=== PATIENT | female | born 1940 | race Caucasian/White ===

== ENCOUNTER 2018-05-08 08:11 | Emergency (ER) | payer OTHER ==
[~2018-05-08] VITALS: Ht 157.5 cm; Wt 63.0 kg
[~2018-05-08 08:11] MED LIST: CHOL1000 PO; LEVO112T4 PO; TPRSR/50 PO
--- NOTE | 2018-05-08 08:23 | EMERGENCY ROOM VISIT NOTE ---
History Report prepared by yUen: Loraine Fuller Under the Supervision of: Dr. Thaddeus Marti M.D. 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 As per nursing staff/EMS, the patient states she went outside last night to go home however when she got out there, she realized she was already home. When she went to go back inside, she tripped over her walker and fell. Her neighbors became concerned after seeing her outside so they called EMS. Nursing staff also notes the patient has a history of a stroke and she took her home dose of metoprolol before coming to the ED. When asked, the patient does not know the president or year. She states she think she fell last night. She has some right sided chest pain but denies any other symptoms. HPI and ROS limited due to the patient's medical condition. 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 HPI and ROS limited due to the patient's medical condition. Past Medical & Surgical Medical Problems: (1) Alcohol use disorder (2) Hypertension (3) Hypothyroidism (4) Numbness on right side (5) Thrombocytopenia (6) Tobacco use disorder Surgical Problems: (1) History of hip replacement Family History Patient reports no known family medical history. Social History Smoking Status: Current Every Day Smoker Drug Use: none Marital Status: Occupation Status: retired Current/Historical Medications Scheduled Cholecalciferol (Vitamin D3), 1 TAB PO DAILY Levothyroxine Sodium (Levothyroxine Sodium), 112 MCG PO DAILY Metoprolol Succinate (Metoprolol Succinate ER), 50 MG PO HS Allergies Coded Allergies: No Known Allergies (Unverified , 05/08/18) Physical Exam Vital Signs Date Time Temp Pulse Resp B/P (MAP) Pulse Ox O2 Delivery O2 Flow Rate FiO2 05/08/18 10:31 68 22 159/73 Room Air 05/08/18 10:01 168/75 05/08/18 09:51 36.6 72 20 166/73 99 Room Air 05/08/18 08:37 36.4 68 20 179/82 98 Room Air 05/08/18 08:36 59 Physical Exam Physical Exam GENERAL: She is oriented x1. She appears well-developed and well-nourished. She does not appear distressed. HENT: Exam performed. Head: Normocephalic and atraumatic. Right Ear: External ear normal. No mastoid tenderness. Left Ear: External ear normal. No mastoid tenderness. Mouth/Throat: The oropharynx is clear and moist. No trismus in the jaw. No dental abscesses or uvula swelling. No oropharyngeal exudate or tonsillar abscesses. EYES: Conjunctivae and EOM are normal. Pupils are equal, round, and reactive to light. Right eye exhibits no discharge. Left eye exhibits no discharge. No scleral icterus. NECK: Normal range of motion. Neck supple. No JVD present. No spinous process tenderness present. No carotid bruit present. No rigidity. No tracheal deviation and normal range of motion present. No Brudzinski's sign and no Kernig 's sign noted. CV: Normal rate, regular rhythm, normal heart sounds and intact distal pulses. There is no peripheral edema. Palpable radial pulses bue. PULM/CHEST: Effort normal and breath sounds normal. No respiratory distress. No stridor. She has no wheezes. She has no rales. Chest Wall: Pain on palpation of right chest wall. ABD: The abdomen is soft. Bowel sounds are normal. She has no distension. No mass is present. There is no tenderness. There is no rebound, no guarding, no Machuca's sign and no tenderness at McBurney's point. Rovsig negative MUSC/SKEL: Normal range of motion. There is no peripheral edema, tenderness or deformity. Pelvis stable. No CT or L-spine tenderness. LYMPH: No cervical adenopathy. NEURO: She is alert and oriented x1. She has normal strength. No cranial nerve deficit or sensory deficit. Coordination and gait normal. GCS eye subscore is 4. GCS verbal subscore is 5. GCS motor subscore is 6. Cerebellar tests wnl. SKIN: Skin is warm and dry. She is not diaphoretic. PSYCH: She has a normal mood and affect. Behavior is normal. Judgment and thought content normal. Medical Decision & Procedures ER Provider Diagnostic Interpretation: Radiology results as stated below per my review and radiologist interpretation: PELVIS 1 OR 2 VIEW ROUTINE CLINICAL HISTORY: fall trauma COMPARISON: None. DISCUSSION: Evidence for a total right hip arthroplasty. Evidence for a left pain procedure. No well-defined acute bony abnormality. No evidence for acetabular protrusion. There is no evidence for soft tissue swelling. IMPRESSION: Degenerative and postoperative change. No acute process. The above report was generated using voice recognition software. It may contain grammatical, syntax or spelling errors. Electronically signed by: Tyler Espinosa M.D. 05/08/2018 9:[address] DOSE: HISTORY: fall TECHNIQUE: Multiaxial CT images of the head were performed without the use of intravenous contrast. Automated exposure control was utilized for this study. A dose lowering technique was utilized adhering to the principles of ALARA. Comparison: Head CT 09/23/2016. Findings: The paranasal sinuses and mastoid air cells are clear. The calvarium and skull base are intact. There is no mass, hematoma, midline shift, acute infarct. White matter hypodensity is nonspecific but suggestive of moderate microvascular ischemic change. The ventricles and sulci demonstrate mild age-related involutional changes. Multiple old infarcts are again noted. Impression: No significant change compared to the prior study. No acute intracranial abnormality. Electronically signed by: Titus Nicholson M.D. 05/08/2018 9:41 AM CHEST ONE VIEW PORTABLE CLINICAL HISTORY: fall trauma COMPARISON STUDY: 09/23/2016 FINDINGS: Mild bibasilar interstitial prominence. Lungs otherwise appear clear. No significant cardiac enlargement. IMPRESSION: Slight nonspecific bibasilar interstitial prominence. Otherwise negative study. The above report was generated using voice recognition software. It may contain grammatical, syntax or spelling errors. Electronically signed by: Tyler Espinosa M.D. 05/08/2018 9:18 AM CERVICAL SPINE W/O CT DOSE: HISTORY: Trauma fall TECHNIQUE: Multiaxial CT images of the cervical spine were performed and reformatted in the sagittal and coronal plane without the use of contrast. A dose lowering technique was utilized adhering to the principles of ALARA. COMPARISON: None. FINDINGS: No fractures. No subluxation. Prevertebral soft tissues and the C1-C2 interval are intact. No pneumothorax. Considerable degenerative disc change throughout. Grade 1 retrolisthesis C3 on C4 felt to be degenerative. Posterior limits are intact. Degenerative changes of the posterior elements are noted throughout. IMPRESSION: No fractures within the cervical spine. Considerable degenerative change The above report was generated using voice recognition software. It may contain grammatical, syntax or spelling errors. Electronically signed by: Tyler Espinosa M.D. 05/08/2018 9:38 AM ABD/PELVIS NO IV OR ORAL CONT CLINICAL HISTORY: 77 years-old Female presenting with fall, confusion, found down. TECHNIQUE: Multidetector CT of the abdomen and pelvis was performed without the use of intravenous contrast. IV contrast: None. A dose lowering technique was used consistent with the principles of ALARA (as low as reasonably achievable). COMPARISON: 09/14/2015. CT DOSE (mGy.cm): The estimated cumulative dose is 1437.46 mGy.cm. FINDINGS: Sales Support Representative topogram: Total right hip arthroplasty. Dynamic screw and multi cerclage wire fixation of the left femoral neck and proximal metadiaphysis. Lung bases: Minimal basilar opacities, likely atelectasis. Normal heart size. Coronary artery and aortic valve calcification. Trace right pleural effusion. Liver: Normal morphology. Normal density. Biliary: No gross biliary ductal dilatation allowing for noncontrast technique. Normal gallbladder. Pancreas: Mild parenchymal atrophy. Prominence of the pancreatic duct as on prior exam. Spleen: Normal noncontrast appearance. Adrenal glands: Normal noncontrast appearance. Kidneys and ureters: Hypodensity at the left lower pole likely cyst. No nephrolithiasis. No hydronephrosis. Renovascular calcification noted. Bladder: Normal noncontrast appearance. Pelvic organs: Uterus surgically absent. Bowel: Limited diverticulosis of the proximal sigmoid colon. Normal appendix. No bowel obstruction. Peritoneal cavity: No free fluid or intraperitoneal gas. Lymph nodes: No gross lymphadenopathy allowing for noncontrast technique. Vasculature: Atherosclerosis of the normal caliber abdominal aorta. Abdominal wall: Small fat-containing umbilical hernia. Musculoskeletal: Internal fixation hardware of the left femoral neck and proximal metadiaphysis. Total right hip arthroplasty. No evidence of hardware complication. No sacral fracture. Degenerative changes of the spine. Old right posterior 12th rib fracture. Slight deformity of the posterior lateral ninth rib as on prior exam suggesting old nondisplaced fracture. Old left posterior 10th rib fracture. Compression deformity of L1 with proximal 50% anterior vertebral body height loss. New since 2014. IMPRESSION: 1. Moderate compression deformity of L1 new since 2014. Correlate for point tenderness as this may represent an acute compression deformity. 2. No other evidence of acute intra-abdominal injury. Electronically signed by: Mike Dasilva M.D. 05/08/2018 10:06 AM Laboratory Results 05/08/18 08:58 Red Blood Count 4.53, Mean Corpuscular Volume 87.2, Mean Corpuscular Hemoglobin 28.5, Mean Corpuscular Hemoglobin Concent 32.7, Neutrophils (%) (Auto) 78.7, Lymphocytes (%) (Auto) 11.6, Monocytes (%) (Auto) 7.8, Eosinophils (%) (Auto) 1.1, Basophils (%) (Auto) 0.3, Neutrophils # (Auto) 8.18, Lymphocytes # (Auto) 1.20, Monocytes # (Auto) 0.81, Eosinophils # (Auto) 0.11, Basophils # (Auto) 0.03 05/08/18 08:58 Test 05/08/18 08:31 05/08/18 08:58 Urine Color YELLOW Urine Appearance CLEAR (CLEAR) Urine pH 7.5 (4.5-7.5) Urine Specific [place] 1.005 (1.000-1.030) Urine Protein NEG (NEG) Urine Glucose (UA) NEG (NEG) Urine Ketones NEG (NEG) Urine Occult Blood NEG (NEG) Urine Nitrite NEG (NEG) Urine Bilirubin NEG (NEG) Urine Urobilinogen NEG (NEG) Urine Leukocyte Esterase NEG (NEG) White Blood Count 10.38 K/uL (4.8-10.8) Red Blood Count 4.53 M/uL (4.2-5.4) Hemoglobin 12.9 g/dL (12.0-16.0) Hematocrit 39.5 % (37-47) Mean Corpuscular Volume 87.2 fL (80-100) Mean Corpuscular Hemoglobin 28.5 pg (25-34) Mean Corpuscular Hemoglobin Concent 32.7 g/dl (32-36) Platelet Count 46 K/uL (130-400) Neutrophils (%) (Auto) 78.7 % Lymphocytes (%) (Auto) 11.6 % Monocytes (%) (Auto) 7.8 % Eosinophils (%) (Auto) 1.1 % Basophils (%) (Auto) 0.3 % Neutrophils # (Auto) 8.18 K/uL (1.4-6.5) Lymphocytes # (Auto) 1.20 K/uL (1.2-3.4) Monocytes # (Auto) 0.81 K/uL (0.11-0.59) Eosinophils # (Auto) 0.11 K/uL (0-0.5) Basophils # (Auto) 0.03 K/uL (0-0.2) RDW Standard Deviation 42.9 fL (36.4-46.3) RDW Coefficient of Variation 13.4 % (11.5-14.5) Immature Granulocyte % (Auto) 0.5 % Immature Granulocyte # (Auto) 0.05 K/uL (0.00-0.02) Platelet Estimate DECREASED Giant Platelets 1+ Prothrombin Time 11.4 SECONDS (9.0-12.0) Prothromb Time International Ratio 1.1 (0.9-1.1) Activated Partial Thromboplast Time 42.6 SECONDS (21.0-31.0) Partial Thromboplastin Ratio 1.6 Anion Gap 5.0 mmol/L (3-11) Est Creatinine Clear Calc Drug Dose 57.7 ml/min Estimated GFR () 96.0 Estimated GFR (Non- 82.8 BUN/Creatinine Ratio 12.1 (10-20) Lactic Acid Level 1.0 mmol/L (0.4-2.0) Calcium Level 9.0 mg/dl (8.5-10.1) Troponin I < 0.015 ng/ml (0-0.045) Lipase 71 U/L (73-393) Laboratory results reviewed by me Medications Administered Medications (Trade) Dose Ordered Sig/Allison Route Start Time Stop Time Status Last Admin Dose Admin Sodium Chloride 1,000 ml @ 125 mls/hr Q8H STAT IV 05/08/18 08:47 05/08/18 12:59 DC 05/08/18 08:47 125 MLS/HR ED Course 0818: The patient was evaluated in room B7. A complete history and physical exam was performed. 0847: Ordered Sodium Chloride 1000 ml @ 125 mls/hr IV 1012: Her vitals are stable. Her workup including labs and imaging were wnl with the exception of a possible L1 compression fracture, however the patient has no point tenderness over that area. Will contact her daughter to take her home. DISCHARGE - Plan of care discussed with patient and questions answered. The patient was given both verbal and printed discharge instructions. The patient verbalized understanding and ability to comply. The patient is to seek outpatient follow up as noted in the discharge instructions. The patient verbalized understanding and ability to comply. The patient is discharged in stable condition. The patient was instructed to return for worsening symptoms. Medical Decision Her vitals are stable. Her workup including labs and imaging were wnl with the exception of a possible L1 compression fracture, however the patient has no point tenderness over that area. Will contact her daughter to take her home. DISCHARGE - Plan of care discussed with patient and questions answered. The patient was given both verbal and printed discharge instructions. The patient verbalized understanding and ability to comply. The patient is to seek outpatient follow up as noted in the discharge instructions. The patient verbalized understanding and ability to comply. The patient is discharged in stable condition. The patient was instructed to return for worsening symptoms. Medication Reconcilliation Current Medication List: was personally reviewed by me Blood Pressure Screening Patient's blood pressure: Elevated blood pressure Blood pressure disposition: Elevated BP felt to be situational Impression Primary Impression: Dementia Scribe Attestation The scribe's documentation has been prepared under my direction and personally reviewed by me in its entirety. I confirm that the note above accurately reflects all work, treatment, procedures, and medical decision making performed by me. The chart was completed utilizing [employer] voice recognition software. Grammatical errors, random word insertions, pronoun errors, and incomplete sentences are an occasional consequence of this system due to software limitations, ambient noise, and hardware issues. Any formal questions or concerns about the content, text, or information contained within the body of this dictation should be directly addressed to the physician for clarification. Departure Information Dispostion Home / Self-Care Referrals Pineda Yee M.D. (PCP) Forms HOME CARE DOCUMENTATION FORM, IMPORTANT VISIT INFORMATION, WORK / SCHOOL INSTRUCTIONS Problem Qualifiers Primary Impression: Dementia Dementia type: unspecified type Dementia behavioral disturbance: with behavioral disturbance Qualified Codes: F03.91 - Unspecified dementia with behavioral disturbance
[2018-05-08 08:37] VITALS: Ht 157.5 cm; Wt 63.0 kg
[2018-05-08] MEDS ORDERED: SODIUM CHLORIDE 0.9% 1000ML 1,000 ML IV STA (08:47)
[2018-05-08 09:18] LABS: MEAN CORPUSCULAR HGB CONC 32.7 g/dl (32-36)
--- NOTE | 2018-05-08 09:20 | DIAGNOSTIC IMAGING REPORT ---
CHEST ONE VIEW PORTABLE CLINICAL HISTORY: fall trauma COMPARISON STUDY: 09/23/2016 FINDINGS: Mild bibasilar interstitial prominence. Lungs otherwise appear clear. No significant cardiac enlargement. IMPRESSION: Slight nonspecific bibasilar interstitial prominence. Otherwise negative study. The above report was generated using voice recognition software. It may contain grammatical, syntax or spelling errors. Electronically signed by: Tyler Espinosa M.D. 05/08/2018 9:18 AM Dictated Date/Time: 05/08/2018 9:18 AM
--- NOTE | 2018-05-08 09:20 | DIAGNOSTIC IMAGING REPORT ---
PELVIS 1 OR 2 VIEW ROUTINE CLINICAL HISTORY: fall trauma COMPARISON: None. DISCUSSION: Evidence for a total right hip arthroplasty. Evidence for a left pain procedure. No well-defined acute bony abnormality. No evidence for acetabular protrusion. There is no evidence for soft tissue swelling. IMPRESSION: Degenerative and postoperative change. No acute process. The above report was generated using voice recognition software. It may contain grammatical, syntax or spelling errors. Electronically signed by: Tyler Espinosa M.D. 05/08/2018 9:19 AM Dictated Date/Time: 05/08/2018 9:19 AM
[2018-05-08 09:27] LABS: INR 1.1 (0.9-1.1); PTT PATIENT 42.6 SECONDS (21.0-31.0)
[2018-05-08 09:32] LABS: HEMATOCRIT 39.5 % (37-47); HEMOGLOBIN 12.9 g/dL (12.0-16.0); MEAN CELL VOLUME 87.2 fL (80-100); MEAN CORPUSCULAR HEMOGLOBIN 28.5 pg (25-34); RED CELL DISTRIBUTION WIDTH CV 13.4 % (11.5-14.5); RED CELL DISTRIBUTION WIDTH SD 42.9 fL (36.4-46.3); WHITE BLOOD COUNT 10.38 K/uL (4.8-10.8)
[2018-05-08 09:35] LABS: BLOOD UREA NITROGEN 8 mg/dl (7-18); CARBON DIOXIDE 30 mmol/L (21-32); CREATININE 0.69 mg/dl (0.60-1.20); GLUCOSE 107 mg/dl (70-99); LIPASE 71 U/L (73-393); POTASSIUM 3.6 mmol/L (3.5-5.1); SODIUM 139 mmol/L (136-145)
--- NOTE | 2018-05-08 09:39 | DIAGNOSTIC IMAGING REPORT ---
CERVICAL SPINE W/O CT DOSE: HISTORY: Trauma fall TECHNIQUE: Multiaxial CT images of the cervical spine were performed and reformatted in the sagittal and coronal plane without the use of contrast. A dose lowering technique was utilized adhering to the principles of ALARA. COMPARISON: None. FINDINGS: No fractures. No subluxation. Prevertebral soft tissues and the C1-C2 interval are intact. No pneumothorax. Considerable degenerative disc change throughout. Grade 1 retrolisthesis C3 on C4 felt to be degenerative. Posterior limits are intact. Degenerative changes of the posterior elements are noted throughout. IMPRESSION: No fractures within the cervical spine. Considerable degenerative change The above report was generated using voice recognition software. It may contain grammatical, syntax or spelling errors. Electronically signed by: Tyler Espinosa M.D. 05/08/2018 9:38 AM Dictated Date/Time: 05/08/2018 9:37 AM
--- NOTE | 2018-05-08 09:42 | DIAGNOSTIC IMAGING REPORT ---
HEAD CT NONCONTRAST CT DOSE: HISTORY: fall TECHNIQUE: Multiaxial CT images of the head were performed without the use of intravenous contrast. Automated exposure control was utilized for this study. A dose lowering technique was utilized adhering to the principles of ALARA. Comparison: Head CT 09/23/2016. Findings: The paranasal sinuses and mastoid air cells are clear. The calvarium and skull base are intact. There is no mass, hematoma, midline shift, acute infarct. White matter hypodensity is nonspecific but suggestive of moderate microvascular ischemic change. The ventricles and sulci demonstrate mild age-related involutional changes. Multiple old infarcts are again noted. Impression: No significant change compared to the prior study. No acute intracranial abnormality. Electronically signed by: Titus Nicholson M.D. 05/08/2018 9:41 AM Dictated Date/Time: 05/08/2018 9:34 AM
[2018-05-08 09:51] VITALS: TEMP 36.6; O2SAT 99
[2018-05-08 10:08] LABS: PLATELET COUNT 46 K/uL (130-400)
--- NOTE | 2018-05-08 10:08 | DIAGNOSTIC IMAGING REPORT ---
ABD/PELVIS NO IV OR ORAL CONT CLINICAL HISTORY: 77 years-old Female presenting with fall, confusion, found down. TECHNIQUE: Multidetector CT of the abdomen and pelvis was performed without the use of intravenous contrast. IV contrast: None. A dose lowering technique was used consistent with the principles of ALARA (as low as reasonably achievable). COMPARISON: 09/14/2015. CT DOSE (mGy.cm): The estimated cumulative dose is 1437.46 mGy.cm. FINDINGS: Advanced Manufacturing Consultant topogram: Total right hip arthroplasty. Dynamic screw and multi cerclage wire fixation of the left femoral neck and proximal metadiaphysis. Lung bases: Minimal basilar opacities, likely atelectasis. Normal heart size. Coronary artery and aortic valve calcification. Trace right pleural effusion. Liver: Normal morphology. Normal density. Biliary: No gross biliary ductal dilatation allowing for noncontrast technique. Normal gallbladder. Pancreas: Mild parenchymal atrophy. Prominence of the pancreatic duct as on prior exam. Spleen: Normal noncontrast appearance. Adrenal glands: Normal noncontrast appearance. Kidneys and ureters: Hypodensity at the left lower pole likely cyst. No nephrolithiasis. No hydronephrosis. Renovascular calcification noted. Bladder: Normal noncontrast appearance. Pelvic organs: Uterus surgically absent. Bowel: Limited diverticulosis of the proximal sigmoid colon. Normal appendix. No bowel obstruction. Peritoneal cavity: No free fluid or intraperitoneal gas. Lymph nodes: No gross lymphadenopathy allowing for noncontrast technique. Vasculature: Atherosclerosis of the normal caliber abdominal aorta. Abdominal wall: Small fat-containing umbilical hernia. Musculoskeletal: Internal fixation hardware of the left femoral neck and proximal metadiaphysis. Total right hip arthroplasty. No evidence of hardware complication. No sacral fracture. Degenerative changes of the spine. Old right posterior 12th rib fracture. Slight deformity of the posterior lateral ninth rib as on prior exam suggesting old nondisplaced fracture. Old left posterior 10th rib fracture. Compression deformity of L1 with proximal 50% anterior vertebral body height loss. New since 2014. IMPRESSION: 1. Moderate compression deformity of L1 new since 2014. Correlate for point tenderness as this may represent an acute compression deformity. 2. No other evidence of acute intra-abdominal injury. Electronically signed by: Mike Dasilva M.D. 05/08/2018 10:06 AM Dictated Date/Time: 05/08/2018 9:35 AM
[2018-05-08 10:10] LABS: BASO % 0.3 %; BASO ABS # 0.03 K/uL (0-0.2); EOS % 1.1 %; EOS ABS # 0.11 K/uL (0-0.5); IG# 0.05 K/uL (0.00-0.02); LYMPH % 11.6 %; MONO % 7.8 %; MONO ABS # 0.81 K/uL (0.11-0.59); NEUT % 78.7 %; NEUT ABS # 8.18 K/uL (1.4-6.5)
[2018-05-08 10:31] VITALS: BP 159/73; PULSE 68
== END 2018-05-08 12:39 | disposition home or self-care (01) ==
LOC: EDBD 08:11 → C.EDB 08:13
DX: F03.91 Unspecified dementia, unspecified severity, with behavioral disturbance (principal); Z86.73 Personal history of transient ischemic attack (TIA), and cerebral infarction without residual deficits; Z79.899 Other long term (current) drug therapy; I10 Essential (primary) hypertension; E03.9 Hypothyroidism, unspecified; F17.210 Nicotine dependence, cigarettes, uncomplicated; Z96.649 Presence of unspecified artificial hip joint

== ENCOUNTER 2019-03-01 14:32 | Observation (INO) ==
--- OUTSIDE RECORDS SUMMARY | 2019-03-01 14:34 | External Medical Summary | Continuity of Care Document ---
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 Meg Leavitt Start: 04-Dec-2015 Quantity: 30 Christopher Refills: 11 Caltrate 600+D TABS Meg Refills: 0 Centrum Silver Oral Tablet , Alice.DOlinda Refills: 0 Levothyroxine Sodium 100 MCG Oral Tablet , Alice.DOlinda Refills: 0 Vitamin D3 1000 UNIT Oral Tablet , Alice.DOlinda Refills: 0 Systane SOLN Meg Refills: 0 Procedures History of Hysterectomy Status: Complete d History of Hip Surgery Status: Completed Immunizations Immunizations not documented Social History - Smoking Status Current some day smoker Plan of Treatment Planned Observations Planned Goals not documented Results No Known Results Results not documented
--- NOTE | 2019-03-01 16:09 | XRay Report ---
XR chest 1V portable CLINICAL HISTORY: weakness COMPARISON STUDY: Chest radiograph May 08, 2018. FINDINGS: Lung volumes are normal. There is no pneumothorax or pleural effusion. There is no evidence for pulmonary edema. Cardiomediastinal silhouette is stable. Minimal left basilar opacity favors ate lectasis or scarring. IMPRESSION: No acute cardiopulmonary findings. No change in appearance of the chest. Electronically signed by: Carlito Connell M.D. 03/01/2019 4:07 PM
--- NOTE | 2019-03-01 16:30 | CT Scan Report ---
HEAD CT NONCONTRAST CT DOSE: 537.48 mGy.cm HISTORY: confusion, thrombocytopenia TECHNIQUE: Multiaxial CT images of the head were performed without the use of intravenous contrast. A utomated exposure control was utilized for this study. A dose lowering technique was utilized adheri ng to the principles of ALARA. Comparison: Head CT 05/08/2018. Findings: The paranasal sinuses and mastoid air cells are clear. The calvarium and skull base are int act. There is no mass, hematoma, midline shift, acute infarct. White matter hypodensity is nonspecifi c but suggestive of microvascular ischemic change. The ventricles and sulci demonstrate mild age-rela seth involutional changes. Multiple old scattered small infarcts primarily within the cerebellar hemis pheres. This remains unchanged. Impression: No significant change compared to the prior study. No acute intracranial abnormality. Electronically signed by: Titus Nicholson M.D. 03/01/2019 4:29 PM
[2019-03-01 17:05] LABS: Hematocrit (blood only) 34.3 % (37-47); Hemoglobin 11.7 g/dL (12.0-16.0); Mean Corpuscular Hgb Conc 34.1 g/dL (32-36); Mean Corpuscular Volume 83.5 fL (80-100); Platelet Count 43 K/uL (130-400); RDW Coefficient of Variation 13.4 % (11.5-14.5); RDW Standard Deviation 41.1 fL (36.4-46.3); Red Blood Count 4.11 M/uL (4.2-5.4); White Blood Count 11.44 K/uL (4.8-10.8)
[2019-03-01 17:13] LABS: Basophils # (auto) 0.02 K/uL (0-0.2); Basophils % (auto) 0.2 %; Eosinophils # (auto) 0.08 K/uL (0-0.5); Eosinophils % (auto) 0.7 %; Giant Platelets 3+; Immature Granulocytes # (auto) 0.03 K/uL (0.00-0.02); Immature Granulocytes % (auto) 0.3 %; Lymphocytes # (auto) 2.04 K/uL (1.2-3.4); Lymphocytes % (auto) 17.8 %; Monocytes # (auto) 0.75 K/uL (0.11-0.59); Monocytes % (auto) 6.6 %; Neutrophils # (auto) 8.52 K/uL (1.4-6.5); Neutrophils % (auto) 74.4 %; Platelet Estimate Decreased (Normal)
[2019-03-01 17:17] LABS: Albumin Level 3.3 gm/dl (3.4-5.0); BUN Creatinine Ratio 15.9 (10-20); Calcium 9.4 mg/dl (8.5-10.1); Creatinine Clr Calc Pharmacy 57.8 ml/min; Est GFR (African American) 96.2; Magnesium 1.7 mg/dl (1.8-2.4)
[2019-03-01 17:28] LABS: Appearance Urine Cloudy (Clear); Bacteria Urine Automated Negative (Negative); Bilirubin Urine Negative (Negative); Blood Urine 3+ (Negative); Color Urine Orange; Epithelial Cell Urine Auto >30 /lpf (0-5); Glucose Urine UA Negative (Negative); Ketones Urine Negative (Negative); Leukocyte Esterase Urine 2+ (Negative); Nitrite Urine Negative (Negative); Protein Urine Negative (Negative); RBC Urine Automated >30 /hpf (0-4); Urobilinogen Urine Negative (Negative); WBC Urine Automated >30 /hpf (0-5)
[2019-03-01 17:36] LABS: Albumin Globulin Ratio 0.9 (0.9-2); Bilirubin,Total 0.6 mg/dl (0.2-1); Globulin 3.8 gm/dl (2.5-4.0); Total Protein 7.1 gm/dl (6.4-8.2); Troponin I 0.084 ng/ml (0-0.045)
[2019-03-01] MEDS ORDERED: cefTRIAXone SODIUM 1,000 MG/50 ML BAG IV STA (18:10)
[2019-03-01] MEDS ORDERED: POTASSIUM CHLORIDE / WTR 10 MEQ/100 ML PLCT IV ONE (18:10)
--- NOTE | 2019-03-01 19:08 | History & Physical Report ---
Date of Service March 01, 2019 Assessment & Plan (1) Change in mental status: She has history of dementia and recent UTI on antibiotic She has not been mentally clear as before CT of the scan unremarkable Seems to be secondary to mild infection Present on Admission?: Yes (2) Thrombocytopenia: Has chronic thrombocytopenia Platelet noted to be 45 today Will not give any steroid (3) Hypothyroidism: Continue replacement (4) UTI (urinary tract infection): Diagnosed with a suspected UTI for the last few days Started with oral amoxicillin for the last 2 Complains to have a fever at home Afebrile in the emergency room with white count of 11.44 Started 1 intravenous ceftriaxone and will continue Urine is sent for culture (5) Elevated troponin: Troponin mildly elevated 2.08 No acute change Doubt any ACS (6) Hypertension: Continue current medication DVT prophylax SCDs CODE STATUS DNR Discussed with the daughter History of Present Illness Chief Complaint: Change in mental status, recent UTI and not getting any better Primary Care Provider: Pineda Yee 79-year-old female with significant past medical history of dementia, hypothyroidism, thrombocytopenia, hypertension and remote history of tobacco use disorder apparently was brought in by the daughter with change in mental status. According to the daughter she was given amoxicillin for suspected UTI recently and she continues to have low-grade fever at home and remained weak and tired all the time. Her mental status seems to be impaired. No history of chills, no urinary symptoms, no abdominal pain nausea no vomiting. Denies any chest pain and no shortness of breath. He was noted to have a low potassium and low magnesium in the emergency room and evaluation which showed suspected infection. Her troponin was minimally elevated 2.08 and she was ruled out subsequently. Allergies Allergy/AdvReac Type Severity Reaction Status Date / Time No Known Allergies Allergy Unverified 03/01/19 16:24 Home Medications Home Medications Medication Instructions Recorded Confirmed Type amoxicillin 500 mg PO TID 03/01/19 03/01/19 History cholecalciferol (vitamin D3) 1,000 unit PO DAILY 03/01/19 03/01/19 History [Vitamin D3] levothyroxine 100 mcg PO DAILY 03/01/19 03/01/19 History metoprolol succinate 50 mg PO DAILY 03/01/19 03/01/19 History vit C-vit O-xxulla-wxfr-lutein 1 cap PO DAILY 03/01/19 03/01/19 History [PreserVision Lutein] Past Med/Surg History Medical History Thrombocytopenia (Chronic) Hypothyroidism (Chronic) Tobacco use disorder (Chronic) Hypertension (Chronic) Surgical History History of hip replacement (Resolved) Social History Feels Safe at Home: Yes Smoking Status: Never smoker Review of Systems Review of Systems: All systems reviewed & are unremarkable except as noted in HPI & below Physical Exam Physical Exam: No apparent distress at rest. She denied any symptoms whatsoever Constitutional: well developed and well nourished; no acute distress and not ill appearing Eyes: PERRL, conjunctivae normal, anicteric sclerae ENMT: external ear and nose normal, oropharynx normal Neck: trachea midline, no thyromegaly Respiratory: normal respiratory effort; no respiratory distress Auscultation: + wheezes (Occasional wheezing on expiration. No crackles) Cardiovascular: Rate/Rhythm: regular rate and regular rhythm Heart Sounds: no murmur Gastrointestinal (Abdomen): Inspection/Auscultation: abdomen normal to inspection Percussion/Palpation: abdomen soft; abdomen nontender Musculoskeletal: No acute arthritis in any joint Neurologic: Alert and awake. Pleasantly confused. Generally weak. No focal neuro deficit Lymphatic: no cervical or axillary lymphadenopathy Results & Data Vital Signs (Past 12 Hours) Vital Signs Temp Pulse Pulse Resp BP BP Pulse Ox 03/01/19 18:00 73 16 169/81 H 95 03/01/19 17:30 76 16 167/84 H 94 03/01/19 17:10 80 18 174/87 H 95 03/01/19 17:08 81 17 95 03/01/19 16:38 76 18 176/119 H 96 03/01/19 16:37 79 16 97 03/01/19 16:32 80 19 03/01/19 16:25 82 20 175/86 H 96 03/01/19 14:44 36.7 C 83 20 159/76 H 95 Laboratory Results Short CBC 03/01/19 Range/Units 16:19 WBC 11.44 H (4.8-10.8) K/uL Hgb 11.7 L (12.0-16.0) g/dL Hct 34.3 L (37-47) % Plt Count 43 L (130-400) K/uL BMP 03/01/19 16:19 Sodium 140 Potassium 3.0 L Chloride 103 Carbon Dioxide 29 BUN 11 Creatinine 0.67 Glucose 81 Calcium 9.4 Cardiac Enzymes 03/01/19 Range/Units 16:19 Troponin I 0.084 H* (0-0.045) ng/ml Liver Function 03/01/19 Range/Units 16:19 Total Bilirubin 0.6 (0.2-1) mg/dl AST 40 H (15-37) U/L ALT 30 (12-78) U/L Alkaline Phosphatase 137 H (45-117) U/L Albumin 3.3 L (3.4-5.0) gm/dl Urine 03/01/19 Range/Units 17:10 Urine Color [place] Urine Appearance Cloudy A (Clear) Urine pH 8.0 H (4.5-7.5) Ur Specific [place] 1.010 (1.000-1.030) Urine Protein Negative (Negative) Urine Glucose (UA) Negative (Negative) Medications Administered Current Inpatient Medications Potassium Chloride (K Hansel / Wtr) 10 meq in 100 mls @ 100 mls/hr IV ONE ONE Stop: 03/01/19 19:09
[2019-03-01] MEDS ORDERED: POTASSIUM CHLORIDE 10 MEQ TABCR PO STA (19:12)
[2019-03-01] MEDS ORDERED: MAGNESIUM SULFATE / D5W 1 GM/100 ML BAG IV ONE (20:00)
[2019-03-01] MEDS: NSS + 20MEQ KCL 20 MEQ/1,000 ML BAG IV SCH (22:17)
--- NOTE | 2019-03-02 00:53 | Emergency Department Note ---
Entered by Sherry Kilgore acting as a scribe for ED Provider Note CHIEF COMPLAINT: Urinary Symptoms HISTORY OF PRESENT ILLNESS: The patient is a 78 year old female who presents to the Emergency Room with complaints of urinary symptoms that began 1 week prior to arrival. The patient states that she has blood in her urine and describes it as a light pink color with no blood clots. The patient states that she has a low-grade fever, congestion, and cough. Per daughter, the patient has been having some confusion. The patient was started on Amoxicillin 2 days prior to arrival. The patient states that she has a history low platelet counts, a stroke, and cirrhosis. The patient denies any history of a blood transfusion or pneumonia. Pt denies painful urinations, LOC, headache, chills, diaphoresis, visual changes, neck pain, chest pain, kidney pain, breathing difficulties, nausea, vomiting, abdominal pain, back pain, melena, hematochezia, numbness, weakness, lymphadenopathy, rash, or other complaints. EMR Reviewed: Home Health stated that the patient had bruising on both arms and hematuria. On February 24, the patient's platelet count was 28 and was started on Amoxicillin yesterday for a UTI. REVIEW OF SYSTEMS: See HPI for pertinent positives and negatives. A total of ten systems were reviewed and were otherwise negative. PMHx/PSHx: Thrombocytopenia Hypothyroidism Hypertension S/P hip replacement SOCIAL HISTORY: Patient lives at home. Tobacco use disorder. PHYSICAL EXAM: GENERAL: Awake, alert, well-appearing, in no distress. HENT: Normocephalic, atraumatic. Oropharynx unremarkable. EYES: PERRL. Pale conjunctiva. Sclera non-icteric. NECK: Inspection normal. Non-tender. Supple. No nuchal rigidity. FROM. No masses. RESPIRATORY: Rhonchi on right side. Wet sounding coughNormal respiratory effort. CARDIAC: Normal rate. Normal rhythm. No murmurs. No rubs. Extremities warm and well perfused. Pulses equal. No JVD. GI: Soft, non-distended. No tenderness to palpation. No rebound or guarding. No masses. RECTAL: Deferred. MUSCULOSKELETAL: Atraumatic. Chest examination reveals no tenderness. The back is symmetrical on inspection without obvious abnormality. There is no CVA tenderness to palpation. No joint edema. LOWER EXTREMITIES: Calves are equal size bilaterally and non-tender. No edema. Chronic venous discoloration. NEURO: Normal sensorium. No sensory or motor deficits noted. SKIN: No rash or jaundice noted. Abrasions and bruises on bilateral elbows noted. EMERGENCY DEPARTMENT COURSE: 153: Past medical records reviewed. The patient was evaluated in room B11A, and a complete history and physical examination were performed. 1630: I checked on the patient and updated her on her results. The patient is agreeable to admission. 1650: I [facility] the [facility] who will evaluate the patient for further hospitalization. The patient will be admitted to Dr. Cho. MEDICAL DECISION MAKING: Prior records/ancillary studies reviewed. Nursing notes reviewed and agree them. Additional history obtained from the patient's daughter. The patient's history was concerning for confusion, urinary symptoms and a history of thrombocytopenia. Differential diagnosis: Etiologies such as metabolic, infection, hypo/hyperglycemia, electrolyte abnormalities, cardiac sources, intracerebral event, toxicologic, neurologic, as well as others were entertained. Physical examination: As above. ER treatment provided: IV Lock IV Rocephin IV potassium On reassessment the patient felt better. Diagnostics interpretation by me: ECG: No evidence of ischemia. The labs revealed a mild anemia on CBC. The patient also has a moderate thrombocytopenia with a platelet count of 43. By the patient's family member this has increased from 29 last week. The patient's chemistry panel was unremarkable except for hypokalemia. The patient's troponin is elevated. Imaging studies: Chest x-ray negative. Head CT negative. The patient has had some confusion. She has hypokalemia and a UTI. The patient also has an elevated troponin. She will need further management in the hospital. Consultation: A consultation was placed with the hospitalist. The case was discussed and diagnostics were reviewed. The patient was evaluated in the ER for further treatment. IMPRESSION: UTI (urinary tract infection) Elevated troponin Thrombocytopenia PLAN: Being Evaluated by Hospitalist. The scribe's documentation has been prepared under my direction and personally reviewed by me in its entirety. I confirm that the note above accurately r eflects all work, treatment, procedures, and medical decision making performed by me. Impression & Plan UTI (urinary tract infection), Elevated troponin, Thrombocytopenia Past Med/Surg History Social History Preferred Language: Occitan Beliefs That Will Affect Care: None Current Living Situation: Alone Other Information That Helps Us Care for You: No Feels Safe at Home: Yes Smoking Status: Never smoker Hx Alcohol Use: Yes Alcohol type: beer Hx Substance Use: No Results & Data Vital Signs Vital Signs - 24 hr 03/01/19 14:44 03/01/19 16:25 03/01/19 16:32 Temperature 36.7 C Temperature Source Oral Sepsis Recent Fever Within 48 Hours No Sepsis Action Taken by Nursing No Action Required Pulse Rate 83 80 Pulse Rate [Finger] 82 Pulse Rate from SpO2 Sensor Pulse Rhythm Respiratory Rate 20 20 19 Respiratory Effort / Characteristics Non-Labored Spontaneous Respiratory Depth Normal Respiratory Pattern Regular Blood Pressure 159/76 H Blood Pressure [Right Arm] 175/86 H Blood Pressure Mean 103 Blood Pressure Mean [Right Arm] 115 Pulse Oximetry 95 96 Oxygen Delivery Method Room Air Room Air 03/01/19 16:37 03/01/19 16:38 03/01/19 17:08 Temperature Temperature Source Sepsis Recent Fever Within 48 Hours Sepsis Action Taken by Nursing Pulse Rate 79 76 81 Pulse Rate [Finger] Pulse Rate from SpO2 Sensor 77 81 Pulse Rhythm Regular Respiratory Rate 16 18 17 Respiratory Effort / Characteristics Respiratory Depth Respiratory Pattern Blood Pressure 176/119 H Blood Pressure [Right Arm] Blood Pressure Mean 138 Blood Pressure Mean [Right Arm] Pulse Oximetry 97 96 95 Oxygen Delivery Method Room Air 03/01/19 17:10 03/01/19 17:30 03/01/19 18:00 Temperature Temperature Source Sepsis Recent Fever Within 48 Hours Sepsis Action Taken by Nursing Pulse Rate 80 76 73 Pulse Rate [Finger] Pulse Rate from SpO2 Sensor 81 76 73 Pulse Rhythm Respiratory Rate 18 16 16 Respiratory Effort / Characteristics Respiratory Depth Respiratory Pattern Blood Pressure 174/87 H 167/84 H 169/81 H Blood Pressure [Right Arm] Blood Pressure Mean 116 111 110 Blood Pressure Mean [Right Arm] Pulse Oximetry 95 94 95 Oxygen Delivery Method 03/01/19 18:30 Temperature Temperature Source Sepsis Recent Fever Within 48 Hours Sepsis Action Taken by Nursing Pulse Rate 76 Pulse Rate [Finger] Pulse Rate from SpO2 Sensor 77 Pulse Rhythm Respiratory Rate 18 Respiratory Effort / Characteristics Respiratory Depth Respiratory Pattern Blood Pressure 168/85 H Blood Pressure [Right Arm] Blood Pressure Mean 112 Blood Pressure Mean [Right Arm] Pulse Oximetry 94 Oxygen Delivery Method Home Medications Current Medication List: was personally reviewed by me Laboratory Data Attestation: I reviewed the patient's lab results. Result diagrams: 03/01/19 16:19 03/01/19 16:19 Lab Results 03/01/19 03/01/19 03/01/19 Range/Units 16:19 16:19 16:32 WBC 11.44 H (4.8-10.8) K/uL RBC 4.11 L (4.2-5.4) M/uL Hgb 11.7 L (12.0-16.0) g/dL Hct 34.3 L (37-47) % MCV 83.5 (80-100) fL MCH 28.5 (25-34) pg MCHC 34.1 (32-36) g/dL RDW Std Deviation 41.1 (36.4-46.3) fL RDW Coeff of [place] 13.4 (11.5-14.5) % Plt Count 43 L (130-400) K/uL Immature Gran % (Auto) 0.3 % Neut % (Auto) 74.4 % Lymph % (Auto) 17.8 % [place] % (Auto) 6.6 % Eos % (Auto) 0.7 % Baso % (Auto) 0.2 % Immature Gran # (Auto) 0.03 H (0.00-0.02) K/uL Neut # (Auto) 8.52 H (1.4-6.5) K/uL Lymph # (Auto) 2.04 (1.2-3.4) K/uL [place] # (Auto) 0.75 H (0.11-0.59) K/uL Eos # (Auto) 0.08 (0-0.5) K/uL Baso # (Auto) 0.02 (0-0.2) K/uL Platelet Estimate Decreased L (Normal) Giant Platelets 3+ Sodium 140 (136-145) mmol/L Potassium 3.0 L (3.5-5.1) mmol/L Chloride 103 (98-107) mmol/L Carbon Dioxide 29 (21-32) mmol/L Anion Gap 7.0 (3-11) BUN 11 (7-18) mg/dl Creatinine 0.67 (0.6-1.2) mg/dl Est Cr Clr Drug Dosing 57.8 ml/min Est GFR ( Amer) 96.2 Est GFR (Non-Af Amer) 83.0 BUN/Creatinine Ratio 15.9 (10-20) Glucose 81 (70-99) mg/dl Calcium 9.4 (8.5-10.1) mg/dl Magnesium 1.7 L (1.8-2.4) mg/dl Total Bilirubin 0.6 (0.2-1) mg/dl AST 40 H (15-37) U/L ALT 30 (12-78) U/L Alkaline Phosphatase 137 H (45-117) U/L Troponin I 0.084 H* (0-0.045) ng/ml Total Protein 7.1 (6.4-8.2) gm/dl Albumin 3.3 L (3.4-5.0) gm/dl Globulin 3.8 (2.5-4.0) gm/dl Albumin/Globulin Ratio 0.9 (0.9-2) TSH 0.852 (0.300-4.500) uIu/ml Urine Color Urine Appearance (Clear) Urine pH (4.5-7.5) Ur Specific [place] (1.000-1.030) Urine Protein (Negative) Urine Glucose (UA) (Negative) Urine Ketones (Negative) Urine Blood (Negative) Urine Nitrite (Negative) Urine Bilirubin (Negative) Urine Urobilinogen (Negative) Ur Leukocyte Esterase (Negative) Urine WBC (Auto) (0-5) /hpf Urine RBC (Auto) (0-4) /hpf U Hyaline Cast (Auto) (0-5) /lpf U Epithel Cells (Auto) (0-5) /lpf Urine Bacteria (Auto) (Negative) Blood Type AB Positive Antibody Screen NEGATIVE 03/01/19 Range/Units 17:10 WBC (4.8-10.8) K/uL RBC (4.2-5.4) M/uL Hgb (12.0-16.0) g/dL Hct (37-47) % MCV (80-100) fL MCH (25-34) pg MCHC (32-36) g/dL RDW Std Deviation (36.4-46.3) fL RDW Coeff of [place] (11.5-14.5) % Plt Count (130-400) K/uL Immature Gran % (Auto) % Neut % (Auto) % Lymph % (Auto) % [place] % (Auto) % Eos % (Auto) % Baso % (Auto) % Immature Gran # (Auto) (0.00-0.02) K/uL Neut # (Auto) (1.4-6.5) K/uL Lymph # (Auto) (1.2-3.4) K/uL [place] # (Auto) (0.11-0.59) K/uL Eos # (Auto) (0-0.5) K/uL Baso # (Auto) (0-0.2) K/uL Platelet Estimate (Normal) Giant Platelets Sodium (136-145) mmol/L Potassium (3.5-5.1) mmol/L Chloride (98-107) mmol/L Carbon Dioxide (21-32) mmol/L Anion Gap (3-11) BUN (7-18) mg/dl Creatinine (0.6-1.2) mg/dl Est Cr Clr Drug Dosing ml/min Est GFR ( Amer) Est GFR (Non-Af Amer) BUN/Creatinine Ratio (10-20) Glucose (70-99) mg/dl Calcium (8.5-10.1) mg/dl Magnesium (1.8-2.4) mg/dl Total Bilirubin (0.2-1) mg/dl AST (15-37) U/L ALT (12-78) U/L Alkaline Phosphatase (45-117) U/L Troponin I (0-0.045) ng/ml Total Protein (6.4-8.2) gm/dl Albumin (3.4-5.0) gm/dl Globulin (2.5-4.0) gm/dl Albumin/Globulin Ratio (0.9-2) TSH (0.300-4.500) uIu/ml Urine Color [place] Urine Appearance Cloudy A (Clear) Urine pH 8.0 H (4.5-7.5) Ur Specific [place] 1.010 (1.000-1.030) Urine Protein Negative (Negative) Urine Glucose (UA) Negative (Negative) Urine Ketones Negative (Negative) Urine Blood 3+ H (Negative) Urine Nitrite Negative (Negative) Urine Bilirubin Negative (Negative) Urine Urobilinogen Negative (Negative) Ur Leukocyte Esterase 2+ H (Negative) Urine WBC (Auto) >30 H (0-5) /hpf Urine RBC (Auto) >30 H (0-4) /hpf U Hyaline Cast (Auto) 1-5 (0-5) /lpf U Epithel Cells (Auto) >30 H (0-5) /lpf Urine Bacteria (Auto) Negative (Negative) Blood Type Antibody Screen Administered Medications Potassium Chloride/Sodium Chloride (Normal Saline W/20 Meq Kcl) 20 meq in 1,000 mls @ 80 mls/hr IV .[id number] TRISTON Stop: 03/02/19 20:59 Last Admin: 03/01/19 22:17 Dose: 80 mls/hr Documented by: [id number] Discontinued Medications Ceftriaxone Sodium (Rocephin) 1,000 mg in 50 mls @ 100 mls/hr IV NOW STA Stop: 03/01/19 18:39 Last Infusion: 03/01/19 19:44 Dose: 0 mls/hr Documented by: [id number] Admin: 03/01/19 19:07 Dose: 100 mls/hr Documented by: [id number] Potassium Chloride (K Hansel / Wtr) 10 meq in 100 mls @ 100 mls/hr IV ONE ONE Stop: 03/01/19 19:09 Last Infusion: 03/01/19 20:10 Dose: 0 mls/hr Documented by: [id number] Admin: 03/01/19 19:07 Dose: 100 mls/hr Documented by: [id number] Magnesium Sulfate/Dextrose (Magnesium Sulfate / D5w) 1 gm in 100 mls @ 100 mls/hr IV ONE ONE Stop: 03/01/19 20:59 Last Infusion: 03/01/19 23:20 Dose: 0 mls/hr Documented by: [id number] Admin: 03/01/19 22:16 Dose: 100 mls/hr Documented by: [id number] Potassium Chloride (Klor-Con M10) 20 meq PO NOW STA Stop: 03/01/19 19:13 Last Admin: 03/01/19 22:16 Dose: 20 meq Documented by: [id number] Imaging Data Radiologist's Impression: Radiology results as stated below per my review and the radiologist's interpretation: HEAD CT NONCONTRAST CT DOSE: 537.48 mGy.cm HISTORY: confusion, thrombocytopenia TECHNIQUE: Multiaxial CT images of the head were performed without the use of intravenous contrast. Automated exposure control was utilized for this study. A dose lowering technique was utilized adhering to the principles of ALARA. Comparison: Head CT 05/08/2018. Findings: The paranasal sinuses and mastoid air cells are clear. The calvarium and skull base are intact. There is no mass, hematoma, midline shift, acute infarct. White matter hypodensity is nonspecific but suggestive of microvascular ischemic change. The ventricles and sulci demonstrate mild age-related involutional changes. Multiple old scattered small infarcts primarily within the cerebellar hemispheres. This remains unchanged. Impression: No significant change compared to the prior study. No acute intracranial abnormality. Electronically signed by: Titus Nicholson M.D. 03/01/2019 4:29 PM XR chest 1V portable CLINICAL HISTORY: weakness COMPARISON STUDY: Chest radiograph May 08, 2018. FINDINGS: Lung volumes are normal. There is no pneumothorax or pleural effusion. There is no evidence for pulmonary edema. Cardiomediastinal silhouette is stable. Minimal left basilar opacity favors atelectasis or scarring. IMPRESSION: No acute cardiopulmonary findings. No change in appearance of the chest. Electronically signed by: Carlito Connell M.D. 03/01/2019 4:07 PM Dictated: 03/01/19 1606 ECG Data Attestation: I personally reviewed and interpreted this ECG as follows: Indication: other (+urinary symptoms) Rate (beats per minute): 78 Rhythm: normal sinus Findings: no PAC, no PVC, no ST depression and no ST elevation Blood Pressure Blood Pressure Findings: Elevated blood pressure Blood Pressure Disposition: elevated BP felt to be situational Discharge Plan Visit Data *Final* Discharge Date/Time: 03/01/19 19:46 Chief Complaint: Urinary Symptoms Stated Complaint: URINARY PAIN - SENT BY DR VALENTIN ED Provider: Kayden Bowie Discharge Problem: UTI (urinary tract infection), Elevated troponin, Thrombocytopenia Patient Disposition: Admitted As Inpatient Discharge Instructions Interventions: ED Discharge Assessment Last Done: 03/01/19 19:46 Discharge Problem: UTI (urinary tract infection) Qualifiers: Urinary tract infection type: site unspecified Hematuria presence: with hematuria Qualified Code(s): N39.0 - Urinary tract infection, site not specified The scribe's documentation has been prepared under my direction and personally reviewed by me in its entirety. I confirm that the note above accurately reflects all work, treatment, procedures, and medical decision making performed by me.
[2019-03-02] MEDS: LEVOTHYROXINE SODIUM 100 MCG TABLET PO SCH (05:59)
[2019-03-02 06:12] LABS: Hematocrit (blood only) 34.4 % (37-47); Hemoglobin 11.7 g/dL (12.0-16.0); Mean Corpuscular Volume 84.1 fL (80-100); RDW Coefficient of Variation 13.6 % (11.5-14.5); RDW Standard Deviation 41.5 fL (36.4-46.3); Red Blood Count 4.09 M/uL (4.2-5.4); White Blood Count 8.51 K/uL (4.8-10.8)
[2019-03-02 06:32] LABS: Basophils # (auto) 0.03 K/uL (0-0.2); Basophils % (auto) 0.4 %; Eosinophils # (auto) 0.22 K/uL (0-0.5); Eosinophils % (auto) 2.6 %; Immature Granulocytes # (auto) 0.02 K/uL (0.00-0.02); Immature Granulocytes % (auto) 0.2 %; Lymphocytes # (auto) 1.98 K/uL (1.2-3.4); Lymphocytes % (auto) 23.3 %; Monocytes # (auto) 0.66 K/uL (0.11-0.59); Monocytes % (auto) 7.8 %; Neutrophils % (auto) 65.7 %; Platelet Count 46 K/uL (130-400); Platelet Estimate Decreased (Normal); RBC Morphology Unremarkable
[2019-03-02 06:33] LABS: BUN Creatinine Ratio 10.4 (10-20); Calcium 8.2 mg/dl (8.5-10.1); Creatinine Clr Calc Pharmacy 60.5 ml/min; Est GFR (African American) 97.7; Est GFR (Non-African American) 84.3; Potassium 3.2 mmol/L (3.5-5.1)
[2019-03-02] MEDS: METOPROLOL SUCC 50MG EXT REL TAB PO SCH (08:44)
[2019-03-02] MEDS: CEROVITE ADV FORMULA TAB PO SCH (08:44)
[2019-03-02] MEDS: CHOLECALCIFEROL 1,000 UNITS TAB PO SCH (08:44)
[2019-03-02] MEDS: NSS + 20MEQ KCL 20 MEQ/1,000 ML BAG IV SCH (12:03)
[2019-03-02] MEDS ORDERED: POTASSIUM CHLORIDE 20 MEQ TABCR PO STA (16:33)
--- NOTE | 2019-03-02 16:33 | Hospitalist Progress Note ---
Date of Service March 02, 2019 Assessment & Plan (1) Change in mental status: She has history of dementia and recent UTI on antibiotic She has not been mentally clear as before CT of the scan unremarkable Seems to be secondary to mild infection Mental status seems to be at her baseline (2) Thrombocytopenia: Has chronic thrombocytopenia Platelet noted to be 45 today Will not give any steroid Platelet count remains stable at upper 40s (3) Hypothyroidism: Continue replacement (4) UTI (urinary tract infection): Diagnosed with a suspected UTI for the last few days Started with oral amoxicillin for the last 2 Complains to have a fever at home Afebrile in the emergency room with white count of 11.44 Started on intravenous ceftriaxone and will continue Urine is sent for culture-less than 10,000 colonies, likely negative Blood culture has been pending (5) Elevated troponin: Troponin mildly elevated 0.08 No acute change Doubt any ACS Repeat troponin is pending (6) Hypertension: Continue current medication DVT prophylax SCDs CODE STATUS DNR Discussed with the daughter We will get PT and OT evaluation Likely discharge tomorrow Subjective 03/02 Patient was seen and examined in medical telemetry unit Is an 79-year-old female with significant past medical history of dementia, hypothyroidism, hypertension, thrombocytopenia was admitted with partially treated UTI and change in mental status She remains stable since admission He is back to her baseline regarding mental status Review of Systems Review of Systems: All systems reviewed and are unremarkable except as noted below Constitutional: + fatigue, + weakness and + anorexia Physical Exam Physical Exam: Lying in bed comfortably Constitutional: well developed and well nourished; no acute distress and not ill appearing Eyes: PERRL, conjunctivae normal, anicteric sclerae ENMT: external ear and nose normal, oropharynx normal Neck: trachea midline, no thyromegaly Respiratory: normal respiratory effort; no respiratory distress Auscultation: + wheezes (Occasional wheezing on expiration. No crackles) Cardiovascular: Rate/Rhythm: regular rate and regular rhythm Heart Sounds: no murmur Gastrointestinal (Abdomen): Inspection/Auscultation: abdomen normal to inspection Percussion/Palpation: abdomen soft; abdomen nontender Psychiatric: Orientation: alert Affect: + depressed affect Mood: + depressed mood Insight: + poor insight Lymphatic: no cervical or axillary lymphadenopathy Results & Data Vital Signs (Past 12 Hours) Vital Signs Temp Pulse Pulse Resp BP Pulse Ox 03/02/19 16:10 37.1 C 74 18 133/72 93 03/02/19 12:27 36.6 C 67 20 167/76 H 96 03/02/19 10:44 67 03/02/19 08:04 36.7 C 72 20 172/70 H 93 Laboratory Results Short CBC 03/01/19 03/02/19 Range/Units 16:19 05:30 WBC 11.44 H 8.51 (4.8-10.8) K/uL Hgb 11.7 L 11.7 L (12.0-16.0) g/dL Hct 34.3 L 34.4 L (37-47) % Plt Count 43 L 46 L (130-400) K/uL BMP 03/01/19 03/02/19 16:19 05:30 Sodium 140 142 Potassium 3.0 L 3.2 L Chloride 103 107 Carbon Dioxide 29 29 BUN 11 7 Creatinine 0.67 0.64 Glucose 81 81 Calcium 9.4 8.2 L Cardiac Enzymes 03/01/19 Range/Units 16:19 Troponin I 0.084 H* (0-0.045) ng/ml Liver Function 03/01/19 Range/Units 16:19 Total Bilirubin 0.6 (0.2-1) mg/dl AST 40 H (15-37) U/L ALT 30 (12-78) U/L Alkaline Phosphatase 137 H (45-117) U/L Albumin 3.3 L (3.4-5.0) gm/dl Urine 03/01/19 Range/Units 17:10 Urine Color [place] Urine Appearance Cloudy A (Clear) Urine pH 8.0 H (4.5-7.5) Ur Specific [place] 1.010 (1.000-1.030) Urine Protein Negative (Negative) Urine Glucose (UA) Negative (Negative) Medications Administered Current Inpatient Medications Ceftriaxone Sodium 1,000 mg/ (Dextrose) 50 mls @ 100 mls/hr IV Q24H [facility]; Protocol Stop: 03/06/19 17:59 Potassium Chloride/Sodium Chloride (Normal Saline W/20 Meq Kcl) 20 meq in 1,000 mls @ 80 mls/hr IV .[id number] [facility] Stop: 03/02/19 20:59 Last Infusion: 03/02/19 13:44 Dose: Infused Documented by: Levothyroxine Sodium (Synthroid) 100 mcg PO DAILYBB [facility] Stop: 04/01/19 06:29 Last Admin: 03/02/19 05:59 Dose: 100 mcg Documented by: Metoprolol Succinate (Toprol Xl) 50 mg PO DAILY [facility] Stop: 04/01/19 08:59 Last Admin: 03/02/19 08:44 Dose: 50 mg Documented by: Multivitamins/Minerals (Multivitamin W/ Minerals Tab) 1 tab PO DAILY [facility] Stop: 04/01/19 08:59 Last Admin: 03/02/19 08:44 Dose: 1 tab Documented by: Vitamin D (Vitamin D3) 1,000 units PO DAILY [facility] Stop: 04/01/19 08:59 Last Admin: 03/02/19 08:44 Dose: 1,000 units Documented by: (1) UTI (urinary tract infection) Hematuria presence: with hematuria Urinary tract infection type: site unspecified Qualified Code(s): N39.0 - Urinary tract infection, site not specified; R31.9 - Hematuria, unspecified
[2019-03-02] MEDS ORDERED: cefTRIAXone SODIUM 1,000 MG in DEXTROSE 5% 50 ML IV SCH (18:00)
[2019-03-03] MEDS: LEVOTHYROXINE SODIUM 100 MCG TABLET PO SCH (06:01)
[2019-03-03 07:27] LABS: Mean Corpuscular Hgb Conc 33.1 g/dL (32-36)
[2019-03-03 07:34] LABS: Hematocrit (blood only) 35.3 % (37-47); Hemoglobin 11.7 g/dL (12.0-16.0); Mean Corpuscular Volume 84.7 fL (80-100); RDW Coefficient of Variation 13.8 % (11.5-14.5); RDW Standard Deviation 42.3 fL (36.4-46.3); Red Blood Count 4.17 M/uL (4.2-5.4)
[2019-03-03 07:55] LABS: Basophils # (auto) 0.03 K/uL (0-0.2); Basophils % (auto) 0.3 %; Eosinophils # (auto) 0.27 K/uL (0-0.5); Eosinophils % (auto) 3.1 %; Giant Platelets 1+; Immature Granulocytes # (auto) 0.02 K/uL (0.00-0.02); Immature Granulocytes % (auto) 0.2 %; Lymphocytes # (auto) 1.95 K/uL (1.2-3.4); Lymphocytes % (auto) 22.2 %; Monocytes # (auto) 0.84 K/uL (0.11-0.59); Monocytes % (auto) 9.5 %; Neutrophils # (auto) 5.69 K/uL (1.4-6.5); Neutrophils % (auto) 64.7 %; Platelet Count 36 K/uL (130-400); Platelet Estimate Decreased (Normal)
[2019-03-03 08:00] LABS: BUN Creatinine Ratio 15.7 (10-20); Calcium 8.8 mg/dl (8.5-10.1); Creatinine Clr Calc Pharmacy 49.7 ml/min; Est GFR (African American) 83.2; Est GFR (Non-African American) 71.8; Magnesium 2.1 mg/dl (1.8-2.4); Phosphorus 2.8 mg/dl (2.5-4.9)
[2019-03-03] MEDS: CEROVITE ADV FORMULA TAB PO SCH (08:47)
[2019-03-03] MEDS: CHOLECALCIFEROL 1,000 UNITS TAB PO SCH (08:47)
[2019-03-03] MEDS: METOPROLOL SUCC 50MG EXT REL TAB PO SCH (08:47)
--- NOTE | 2019-03-03 09:12 | Hospitalist Progress Note ---
Date of Service March 03, 2019 Assessment & Plan (1) Change in mental status: She has history of dementia and recent UTI on antibiotic She has not been mentally clear as before CT of the scan unremarkable Seems to be secondary to mild infection Mental status seems to be at her baseline (2) Thrombocytopenia: Has chronic thrombocytopenia Platelet noted to be 45 today Will not give any steroid for now Platelet count is a little low at 36 today (3) Hypothyroidism: Continue replacement (4) UTI (urinary tract infection): Diagnosed with a suspected UTI for the last few days Started with oral amoxicillin for the last 2 Complains to have a fever at home Afebrile in the emergency room with white count of 11.44 Started on intravenous ceftriaxone and will continue Urine is sent for culture-less than 10,000 colonies, likely negative Blood culture-negative Denies any urinary symptoms Will DC antibiotic (5) Elevated troponin: Troponin mildly elevated 0.08 No acute change Doubt any ACS Repeat troponin is pending-improved No ACS (6) Hypertension: Continue current medication DVT prophylax SCDs CODE STATUS DNR Discussed with the daughter We will get PT and OT evaluation May need short term placement Medically stable to be discharged Subjective 03/02 Patient was seen and examined in medical telemetry unit Is an 79-year-old female with significant past medical history of dementia, hypothyroidism, hypertension, thrombocytopenia was admitted with partially treated UTI and change in mental status She remains stable since admission He is back to her baseline regarding mental status 03/03 The patient was seen and examined in medical telemetry She has been stable with occasional confusion due to known dementia Denies any symptoms Review of Systems Review of Systems: All systems reviewed and are unremarkable except as noted below Constitutional: + fatigue, + weakness and + anorexia Physical Exam Physical Exam: No apparent distress at rest Constitutional: well developed and well nourished; no acute distress and not ill appearing Eyes: PERRL, conjunctivae normal, anicteric sclerae ENMT: external ear and nose normal, oropharynx normal Neck: trachea midline, no thyromegaly Respiratory: normal respiratory effort; no respiratory distress Auscultation: + rales (Minimal at the bases) and + wheezes (Occasional wheezing on expiration. No crackles) Cardiovascular: Rate/Rhythm: regular rate and regular rhythm Heart Sounds: no murmur Gastrointestinal (Abdomen): Inspection/Auscultation: abdomen normal to inspection Percussion/Palpation: abdomen soft; abdomen nontender Neurologic: moves all extremities Psychiatric: Orientation: alert Affect: + depressed affect Mood: + depressed mood Insight: + poor insight Judgement: + limited judgement Lymphatic: no cervical or axillary lymphadenopathy Results & Data Vital Signs (Past 12 Hours) Vital Signs Temp Pulse Pulse Resp BP BP Pulse Ox 03/03/19 08:46 90 127/66 95 03/03/19 07:26 63 03/03/19 07:03 36.6 C 67 18 154/72 H 93 03/03/19 04:13 37.1 C 73 18 164/85 H 93 03/03/19 00:55 63 03/02/19 22:55 36.7 C 74 18 156/69 H 92 Laboratory Results Short CBC 03/03/19 Range/Units 07:04 WBC 8.80 (4.8-10.8) K/uL Hgb 11.7 L (12.0-16.0) g/dL Hct 35.3 L (37-47) % Plt Count 36 L (130-400) K/uL BMP 03/03/19 07:04 Sodium 143 Potassium 4.0 D Chloride 109 H Carbon Dioxide 29 BUN 12 D Creatinine 0.78 Glucose 100 H Calcium 8.8 Cardiac Enzymes 03/02/19 Range/Units 17:10 Troponin I 0.035 (0-0.045) ng/ml Medications Administered Current Inpatient Medications Ceftriaxone Sodium 1,000 mg/ (Dextrose) 50 mls @ 100 mls/hr IV Q24H [facility]; Protocol Stop: 03/06/19 17:59 Last Infusion: 03/02/19 18:52 Dose: Infused Documented by: Levothyroxine Sodium (Synthroid) 100 mcg PO DAILYBB [facility] Stop: 04/01/19 06:29 Last Admin: 03/03/19 06:01 Dose: 100 mcg Documented by: Metoprolol Succinate (Toprol Xl) 50 mg PO DAILY [facility] Stop: 04/01/19 08:59 Last Admin: 03/03/19 08:47 Dose: 50 mg Documented by: Multivitamins/Minerals (Multivitamin W/ Minerals Tab) 1 tab PO DAILY [facility] Stop: 04/01/19 08:59 Last Admin: 03/03/19 08:47 Dose: 1 tab Documented by: Vitamin D (Vitamin D3) 1,000 units PO DAILY [facility] Stop: 04/01/19 08:59 Last Admin: 03/03/19 08:47 Dose: 1,000 units Documented by: (1) UTI (urinary tract infection) Hematuria presence: with hematuria Urinary tract infection type: site unspecified Qualified Code(s): N39.0 - Urinary tract infection, site not specified; R31.9 - Hematuria, unspecified
[2019-03-03] MEDS ORDERED: FUROSEMIDE 40 MG/4 ML VIAL IV STA (09:21)
--- NOTE | 2019-03-10 16:26 | Discharge Summary ---
Date of Service March 10, 2019 Admission HPI Per Admitting Provider 79-year-old female with significant past medical history of dementia, hypothyroidism, thrombocytopenia, hypertension and remote history of tobacco use disorder apparently was brought in by the daughter with change in mental status. According to the daughter she was given amoxicillin for suspected UTI recently and she continues to have low-grade fever at home and remained weak and tired all the time. Her mental status seems to be impaired. No history of chills, no urinary symptoms, no abdominal pain nausea no vomiting. Denies any chest pain and no shortness of breath. He was noted to have a low potassium and low magnesium in the emergency room and evaluation which showed suspected infection. Her troponin was minimally elevated 2.08 and she was ruled out subsequently. Admission Exam Per Admitting Provider Physical Exam: No apparent distress at rest. She denied any symptoms whatsoever Constitutional: well developed and well nourished; no acute distress and not ill appearing Eyes: PERRL, conjunctivae normal, anicteric sclerae ENMT: external ear and nose normal, oropharynx normal Neck: trachea midline, no thyromegaly Respiratory: normal respiratory effort; no respiratory distress Auscultation: + wheezes (Occasional wheezing on expiration. No crackles) Cardiovascular: Rate/Rhythm: regular rate and regular rhythm Heart Sounds: no murmur Gastrointestinal (Abdomen): Inspection/Auscultation: abdomen normal to inspection Percussion/Palpation: abdomen soft; abdomen nontender Musculoskeletal: No acute arthritis in any joint Neurologic: Alert and awake. Pleasantly confused. Generally weak. No focal neuro deficit Lymphatic: no cervical or axillary lymphadenopathy Principal Diagnosis Change in mental status-back to her baseline, chronic thrombocytopenia, UTI- treated Discharge Exam Constitutional well developed and well nourished; no acute distress and not ill appearing Eyes PERRL, conjunctivae normal, anicteric sclerae ENMT external ear and nose normal, oropharynx normal Neck trachea midline, no thyromegaly Respiratory normal respiratory effort; no respiratory distress Auscultation: + rales (Minimal at the bases) and + wheezes (Occasional wheezing on expiration. No crackles) Cardiovascular Rate/Rhythm: regular rate and regular rhythm Heart Sounds: no murmur Gastrointestinal (Abdomen) Inspection/Auscultation: abdomen normal to inspection Percussion/Palpation: abdomen soft; abdomen nontender Neurologic moves all extremities Psychiatric Orientation: alert Affect: + depressed affect Mood: + depressed mood Insight: + poor insight Judgement: + limited judgement Lymphatic no cervical or axillary lymphadenopathy Discharge Data Allergies Allergy/AdvReac Type Severity Reaction Status Date / Time No Known Allergies Allergy Unverified 03/01/19 16:24 Consultations 03/01/19 18:25 ED Decision to Admit Stat Ordered Studies 03/01/19 15:36 CT head/brain wo con Stat Hospital Course (1) Change in mental status: She has history of dementia and recent UTI on antibiotic She has not been mentally clear as before CT of the scan unremarkable Seems to be secondary to mild infection Mental status seems to be at her baseline (2) Thrombocytopenia: Has chronic thrombocytopenia Platelet noted to be 45 today Will not give any steroid for now Platelet count is a little low at 36 today (3) Hypothyroidism: Continue replacement (4) UTI (urinary tract infection): Diagnosed with a suspected UTI for the last few days Started with oral amoxicillin for the last 2 Complains to have a fever at home Afebrile in the emergency room with white count of 11.44 Started on intravenous ceftriaxone and will continue Urine is sent for culture-less than 10,000 colonies, likely negative Blood culture-negative Denies any urinary symptoms Will DC antibiotic (5) Elevated troponin: Troponin mildly elevated 0.08 No acute change Doubt any ACS Repeat troponin is pending-improved No ACS (6) Hypertension: Continue current medication DVT prophylax SCDs CODE STATUS DNR Discussed with the daughter We will get PT and OT evaluation May need short term placement Medically stable to be discharged Total Time Total Time Spent Total Time Spent (In Minutes): 35 minutes Total Time Includes: Examination of the Patient, Discharge Planning, Medication Reconciliation and Communication With Other Providers Discharge Plan Discharge Items Patient Disposition: Transfer Care Home Fac Reason For Visit: CHANGE IN MENTAL STATUS Discharge Diagnosis: Change in mental status-back to her baseline, chronic thrombocytopenia, UTI-treated Condition: Fair Discharge Goals: Decrease discomfort, Improve function and Increase independence Activity: Resume your previous activity Non-emergency contact: Primary Care Provider Call non-emergency contact if: you have any medication questions and your symptoms worsen Follow-up/Referrals: Pineda Yee [Primary Care Provider] - (Please make an appointment with Dr. Thompson in 1 week) Diet: Heart Healthy Addtl Provider Instructions: Please take precaution to avoid falls Prescriptions: New albuterol sulfate 90 mcg/actuation HFA aerosol inhaler 2 puffs INH Q6H PRN (Reason: shortness of breath or wheezing) Qty: 8.5 RF: 0 Continued metoprolol succinate 50 mg tablet extended release 24 hr 50 mg PO DAILY RF: 0 levothyroxine 100 mcg tablet 100 mcg PO DAILY RF: 0 cholecalciferol (vitamin D3) [Vitamin D3] 1,000 unit Capsule 1,000 unit PO DAILY RF: 0 PreserVision Lutein 226 mg-200 unit -5 mg-0.8 mg Capsule 1 cap PO DAILY RF: 0 Discontinued amoxicillin 500 mg capsule 500 mg PO TID RF: 0 Stand-Alone Forms: [facility] Discharge Orders: Discharge Order (Routine); Ordered 03/03/19 Ordered By: Jayshree Cho Skilled Items Patient informed of condition?: Yes DNR: Yes Discharge Level of Care: Skilled Communicable Disease: No Discharge Prognosis: Stable Admission Data Admit Date/Time: 03/01/19 18:57 Attending Provider: Jayshree Cho Admit Provider: Jayshree Cho Primary Care Provider: Pineda Yee Service: Telemetry Medical Other Interventions: Discharge Summary Assessment (RN) Last Done: 03/03/19 13:53 DC Date/Time DO NOT enter until pt leaves facility: 03/03/19 17:57
== END 2019-03-03 17:57 ==
LOC: ED 14:32 → 2N 14:32
DX: R79.89 Other specified abnormal findings of blood chemistry; F03.90 Unspecified dementia, unspecified severity, without behavioral disturbance, psychotic disturbance, mood disturbance, and anxiety; I10 Essential (primary) hypertension; R41.82 Altered mental status, unspecified; Z79.899 Other long term (current) drug therapy; Z87.891 Personal history of nicotine dependence; E03.9 Hypothyroidism, unspecified; N39.0 Urinary tract infection, site not specified; D69.6 Thrombocytopenia, unspecified